=== PATIENT | male | born 1985 | race African-American/Black ===

== ENCOUNTER 2017-05-05 05:25 | Emergency (ER) | payer BC ==
[2017-05-05] MEDS ORDERED: SODIUM CHLORIDE 1,000 ML IV ONE (05:31)
[2017-05-05] MEDS ORDERED: ONDANSETRON 4 MG/2 ML VIAL IVPB ONE (05:31)
--- NOTE | 2017-05-05 05:31 | PDOC ---
History of Present Illness - General Chief Complaint: Vomiting/Diarrhea Stated Complaint: VOMITING/DIARRHEA POSSIBLE FOOD POISONING Time Seen by Provider: 05/05/17 05:31 History Source: Patient Exam Limitations: No Limitations - History of Present Illness Initial Comments: 05/05/17 05:38 This is a 32-year-old male who comes in complaining of nausea vomiting and diarrhea approximately 6 hours after eating a turkey sandwich yesterday. Patient said he has had multiple episodes of diarrhea associated with cramping of elbow pain and some vomiting. Patient also is complaining of some fevers and chills. Patient had 100.6 temperature here in the emergency room. Patient said he is otherwise healthy and denies any travel recently. PAST MEDICAL HISTORY: no significant history PAST SURGICAL HISTORY: no significant history FAMILY HISTORY: no pertinant history SOCIAL HISTORY: Pt lives with family and is employed. MEDICATIONS: reviewed ALLERGIES: As per nursing notes Review of Systems General: No fevers or chills, no weakness, no weight loss HEENT: No change in vision. No sore throat,. No ear pain CardioVascular: No chest pain or shortness of breath Respiratory:No cough, or wheezing. Gastrointestinal: + Nausea, vomiting, diarrhea. + Crampy abdominal pain Genitourinary: No dysuria, hematuria, or frequency Musculoskeletal: No joint or muscle pain or swelling Neurologic: No headache, vertigo, dizziness or loss of consciousness Psychiatric: nor depression Skin: No rashes or easy bruising Endocrine: no increased thirst or abnormal weight change Allergic: no skin or latex allergy All other systems reviewed and normal Exam: General: Well-nourished well-developed individual, no acute distress HEENT: Throat: Normal, tonsils normal, no erythema or exudate, mucous membranes dry Neck: Supple, no meningeal signs, no lymphadenopathy Eyes::Pupils equal reactive and round, extraocular motion intact Chest: Nontender to palpation Cardiac: S1-S2 normal, regular rate and rhythm, no murmurs rubs or gallops Respiratory: Lungs clear to auscultation bilateral Abdomen: Soft, nondistended, normal bowel sounds, nontender to palpation diffusely Extremities: Warm, dry, no cyanosis, clubbing, or edema Skin: No rashes Neuro: Alert and oriented x3, nonfocal exam, grossly intact, normal gait Psych: Normal mood and affect 05/05/17 07:00 Reevaluation patient feels much better however lab work still pending. Care of patient transferred to Dr. Luis at 7 AM Case discussed in detail with oncoming Emergency Physician including history, physical exam and ancillary studies. Oncoming Emergency Physician has assumed care for the patient and will complete the evaluation and treatment. Patient is aware of the plan. Pt is clinically unchanged and stable. Past History - Past Medical History Allergies/Adverse Reactions: Allergies Allergy/AdvReac Type Severity Reaction Status Date / Time No Known Allergies Allergy Verified 05/05/17 05:27 Home Medications: Ambulatory Orders NK [No Known Home Medication] 05/05/17 ED Treatment Course - LABORATORY CBC & Chemistry Diagram: 05/05/17 05:53 05/05/17 05:53 *DC/Admit/Observation/Transfer Diagnosis at time of Disposition: Gastroenteritis Food poisoning Qualifiers: Encounter type: initial encounter Injury intent: undetermined intent Qualified Code(s): T62.94XA - Toxic effect of unspecified noxious substance eaten as food , undetermined, initial encounter - Discharge Dispostion Disposition: HOME Condition at time of disposition: Stable - Patient Instructions Printed Discharge Instructions: DI for Viral Gastroenteritis -- Adult Additional Instructions: Fluids, rest, Tylenol If worsens in next 12-24 hr, return to ER
[2017-05-05 05:34] VITALS: BMI 36.2
[2017-05-05] MEDS ORDERED: ACETAMINOPHEN 1000 MG/100 ML VIAL (NON FORMULARY) IVPB ONE (05:35)
[2017-05-05] MEDS ORDERED: ONDANSETRON 4 MG/2 ML VIAL ONE (05:40)
[2017-05-05] MEDS ORDERED: ACETAMINOPHEN INJECTION 100 ML IVPB ONE (05:40)
[2017-05-05 06:17] LABS: BASOPHIL 0.2 % (0-2.0); EOSINOPHIL 0.1 % (0-4.5); MCH 29.6 pg (25.7-33.7); MCHC 32.9 g/dl (32.0-35.9); MEAN PLT VOLUME 10.2 fl (7.5-11.1); NEUTROPHILS 85.9 % (42.8-82.8); PLATELET COUNT 128 K/MM3 (134-434); WHITE BLOOD COUNT 11.6 K/mm3 (4.0-10.0)
[2017-05-05] MEDS ORDERED: SODIUM CHLORIDE 1,000 ML IV STA (07:11)
--- NOTE | 2017-05-05 07:16 | PDOC ---
History of Present Illness - General Chief Complaint: Vomiting/Diarrhea Stated Complaint: VOMITING/DIARRHEA POSSIBLE FOOD POISONING Time Seen by Provider: 05/05/17 05:31 History Source: Patient Exam Limitations: No Limitations - History of Present Illness Travel History: No Initial Comments: 05/05/17 07:12 32 y/o male presents to ER with N/V/D since last evening. Patient seen by Dr. Kelly and started with fluids, Zofran and Tylenol. Labs are pending this morning. Patient states that he at a [employer] sandwich last night and about 6 hrs after developed N/V/D. Started to have fever and chills. He is now feeling better. No abdominal or back pain. No recnet sick exposure or traveling. No SOB or chest pain. Quality: reports: mild Pain Radiation: reports: no radiation Activities at Onset: reports: eating Past History - Past Medical History Allergies/Adverse Reactions: Allergies Allergy/AdvReac Type Severity Reaction Status Date / Time No Known Allergies Allergy Verified 05/05/17 05:27 Home Medications: Ambulatory Orders NK [No Known Home Medication] 05/05/17 Other medical history: DENIES - Psycho/Social/Smoking Cessation Hx Anxiety: No Suicidal Ideation: No Smoking History: Never smoked Have you smoked in the past 12 months: No Information on smoking cessation initiated: No Hx Alcohol Use: No Drug/Substance Use Hx: No Substance Use Type: None Review of Systems - Review of Systems Able to Perform ROS?: Yes Is the patient limited [place] proficient: No Constitutional: Yes: Chills, Fever Respiratory: No: Cough, Shortness of Breath Cardiac (ROS): No: Chest Pain, Irregular Heart Rate ABD/GI: Yes: Diarrhea, Nausea, Vomiting : No: Burning, Dysuria All Other Systems: Reviewed and Negative *Physical Exam - Vital Signs Last Vital Signs Temp Pulse Resp BP Pulse Ox 100.4 F H 111 H 20 119/91 97 05/05/17 05:27 05/05/17 05:27 05/05/17 05:27 05/05/17 05:27 05/05/17 05:27 - Physical Exam General Appearance: Yes: Nourished, Appropriately Dressed. No: Apparent Distress HEENT: positive: EOMI, YENNI, Normal ENT Inspection, Normal Voice Neck: positive: Trachea midline, Normal Thyroid, Supple. negative: Tender, Rigid, Carotid bruit Respiratory/Chest: positive: Lungs Clear, Normal Breath Sounds. negative: Chest Tender Cardiovascular: positive: Regular Rhythm, Regular Rate, S1, S2. negative: Edema , JVD, Murmur Vascular Pulses: Femoral (R): 4+, Femoral (L): 4+, Carotid (R): 4+, Carotid (L) : 4+, Dorsalis-Pedis (R): 4+, Doralis-Pedis (L): 4+ Gastrointestinal/Abdominal: positive: Normal Bowel Sounds, Flat, Soft, Other ( No RLQ or LLQ tenderness, +BS, no RUQ or LUQ tenderness). negative: Tender, Organomegaly, Pulsatile Mass Lymphatic: negative: Adenopathy, Tenderness, Other Musculoskeletal: positive: Normal Inspection. 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 No abdominal pain or vomiting wbc slightly elevated and Cr/BUN slightly elevated Will discharge home Vitals signs repeated and noted. Temp 100.2. - Medications Given in the ED: ED Medications Discontinued Medications Generic Name Dose Route Start Last Admin Trade Name Freq PRN Reason Stop Dose Admin Acetaminophen 1,000 mg 05/05/17 05:35 05/05/17 05:49 Ofirmev Injection - IVPB 05/05/17 05:36 1,000 mg ONCE ONE Administration Sodium Chloride 1,000 mls @ 1,000 mls/hr 05/05/17 05:31 05/05/17 05:39 Normal Saline - IV 05/05/17 06:30 1,000 mls/hr .Q1H ONE Administration Ondansetron HCl 8 mg 05/05/17 05:31 07/04/17 05:45 Zofran Injection IVPB 05/05/17 05:32 8 mg ONCE ONE Administration Progress Note - Progress Note Progress Note: Patient feels much better after 2 L of fluids. Vitals slightly better, no abdominal pain. Agrees to discharge, and understands if worsens will return to ER *DC/Admit/Observation/Transfer Diagnosis at time of Disposition: Gastroenteritis Food poisoning Qualifiers: Encounter type: initial encounter Injury intent: undetermined intent Qualified Code(s): T62.94XA - Toxic effect of unspecified noxious substance eaten as food , undetermined, initial encounter - Discharge Dispostion Condition at time of disposition: Stable Admit: No - Patient Instructions Printed Discharge Instructions: DI for Viral Gastroenteritis -- Adult Additional Instructions: Fluids, rest, Tylenol If worsens in next 12-24 hr, return to ER
[2017-05-05 07:18] LABS: ALBUMIN 3.8 g/dl (3.4-5.0); ALK PHOS 85 U/L (45-117); ANION GAP 7 (8-16); BILIRUBIN,TOTAL 0.4 mg/dL (0.2-1.0); CALCIUM 8.5 mg/dL (8.5-10.1); CO2 27 mmol/L (21-32); CREATININE 1.5 mg/dL (0.7-1.3); GLUCOSE,RANDOM 138 mg/dL (74-106); SGOT/AST 35 U/L (15-37); SGPT/ALT 59 U/L (12-78); TOT PROT 6.7 g/dl (6.4-8.2)
[2017-05-05 07:38] VITALS: BP 113/59; PULSE 112; TEMP 100.2
== END 2017-05-05 07:58 | disposition home or self-care (01) ==
LOC: FER 05:25
PROC: 3E033NZ Introduction of Analgesics, Hypnotics, Sedatives into Peripheral Vein, Percutaneous Approach (ICD-10-PCS; principal; 2017-05-05)
PROC: 3E033GC Introduction of Other Therapeutic Substance into Peripheral Vein, Percutaneous Approach (ICD-10-PCS; 2017-05-05)
PROC: 3E0337Z Introduction of Electrolytic and Water Balance Substance into Peripheral Vein, Percutaneous Approach (ICD-10-PCS; 2017-05-05)
DX: T62.94XA Toxic effect of unspecified noxious substance eaten as food, undetermined, initial encounter (principal); K52.9 Noninfective gastroenteritis and colitis, unspecified; X58.XXXA Exposure to other specified factors, initial encounter; Y93.89 Activity, other specified; Y92.9 Unspecified place or not applicable
CPT/HCPCS: 36415; 80053; 85025; 99281-25

== ENCOUNTER 2018-07-12 14:31 | Observation (INO) | payer OTHER, BC ==
[2018-07-12 14:47] VITALS: BMI 29.9
[2018-07-12] MEDS ORDERED: CYCLOBENZAPRINE HCL 10 MG TABLET (FP) PO ONE (15:52)
[2018-07-12] MEDS ORDERED: KETOROLAC TROMETHAMINE 60 MG/2 ML VIAL IM ONE (15:52)
[2018-07-12] MEDS ORDERED: CYCLOBENZAPRINE HCL 10 MG TABLET (FP) ONE (15:52)
[2018-07-12] MEDS ORDERED: KETOROLAC TROMETHAMINE 60 MG/2 ML VIAL ONE (15:52)
--- NOTE | 2018-07-12 16:32 | PDOC ---
History of Present Illness - General Chief Complaint: Chronic pain Stated Complaint: BACK PAIN Time Seen by Provider: 07/12/18 15:25 History Source: Patient - History of Present Illness Occurred: reports: yesterday Pain Location: reports: back Past History - Past Medical History Allergies/Adverse Reactions: Allergies Allergy/AdvReac Type Severity Reaction Status Date / Time No Known Allergies Allergy Verified 07/12/18 14:43 Home Medications: Ambulatory Orders Cetirizine HCl [All Day Allergy] 10 mg PO DAILY 07/12/18 Montelukast Sodium [Singulair] 5 mg PO DAILY 07/12/18 COPD: No DVT: No Dementia: No - Immunization History Immunization Up to Date: Yes - Suicide/Smoking/Psychosocial Hx Smoking History: Never smoked Have you smoked in the past 12 months: No Hx Alcohol Use: No Drug/Substance Use Hx: No Substance Use Type: None Review of Systems - Review of Systems Constitutional: No: Chills, Fever ABD/GI: No: Nausea, Vomiting, Abdominal cramping : No: Dysuria, Flank Pain, Hematuria Musculoskeletal: Yes: Back Pain *Physical Exam - Vital Signs Last Vital Signs Temp Pulse Resp BP Pulse Ox 98.5 F 80 16 141/81 96 07/12/18 14:43 07/12/18 14:43 07/12/18 14:43 07/12/18 14:43 07/12/18 14:43 - Physical Exam General Appearance: Yes: Appropriately Dressed, Moderate Distress HEENT: positive: Normal Voice Neck: positive: Supple Respiratory/Chest: negative: Respiratory Distress Gastrointestinal/Abdominal: positive: Soft. negative: Tender Musculoskeletal: positive: Normal Inspection. negative: CVA Tenderness Integumentary: positive: Dry, Warm Neurologic: positive: Fully Oriented, Alert, Normal Mood/Affect ED Treatment Course - Medications Given in the ED: ED Medications Discontinued Medications Generic Name Dose Route Start Last Admin Trade Name Freq PRN Reason Stop Dose Admin Cyclobenzaprine HCl 10 mg 07/12/18 15:52 07/12/18 15:54 Flexeril - PO 07/12/18 15:53 10 mg ONCE ONE Administration Ketorolac Tromethamine 60 mg 07/12/18 15:52 07/12/18 15:54 Toradol Injection - IM 07/12/18 15:53 60 mg ONCE ONE Administration Medical Decision Making - Medical Decision Making 07/12/18 17:02 33 yo male, endorses history of chronic lower back pain s/p lower back injury several years ago, herniated disc on MRI, status post multiple sessions of physical therapy, usually takes Flexeril and Motrin for pain at home, 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 Taking motrin at pain w/ no relief. No lower extremity sensory changes, weakness , saddle anesthesia, bowel or bladder incontinence. No recent injuries. No dysuria, hematuria, nausea, vomiting, fever or chills. See axam Acute on chronic LBP Not relieved w/ home meds Herniated disc on remote MRI S/p PT No red flags on exam to warrant spinal imaging at this time -pain control, reassess 07/12/18 17:11 Pt continues to complain of severe pain despite attempt at pain control. Will give dose of IM morphine and reassess 07/12/18 18:56 Pain persists despite [address] of morphine. Will place IV line in order to continue to control pain. CT L/S spine in progress. May warrant admission for intractable back pain 07/12/18 19:08 Pt signed out to COLT Garcia *DC/Admit/Observation/Transfer Diagnosis at time of Disposition: Intractable back pain - Referrals - Patient Instructions - Post Discharge Activity
[2018-07-12] MEDS ORDERED: morphine CARPU-JECT 4 MG/1 ML DISP.SYRIN IM ONE (17:02)
[2018-07-12] MEDS ORDERED: morphine SULFATE 4 MG/ML VIAL ONE ×2 (17:12→19:53)
[2018-07-12] MEDS ORDERED: morphine CARPU-JECT 4 MG/1 ML DISP.SYRIN IVPUSH ONE (18:54)
[2018-07-12] MEDS ORDERED: diazePAM 5 MG TABLET PO ONE (19:43)
[2018-07-12] MEDS ORDERED: diazePAM 5 MG TABLET ONE (19:54)
[2018-07-12] MEDS ORDERED: DICLOFENAC SODIUM 25 MG TABLET.DR PO ONE (20:24)
--- NOTE | 2018-07-12 20:27 | PDOC ---
*Physical Exam - Vital Signs Last Vital Signs Temp Pulse Resp BP Pulse Ox 99.3 F 68 19 133/74 100 07/12/18 17:58 07/12/18 17:58 07/12/18 17:58 07/12/18 17:58 07/12/18 17:58 - Physical Exam General Appearance: Yes: Appropriately Dressed Respiratory/Chest: positive: Lungs Clear, Normal Breath Sounds Musculoskeletal: positive: Normal Inspection, Vertebral Tenderness (lumbar area pain), Other (no numbness or tingling to lower extremity). 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, Fully Oriented, Alert, Motor Strength 03/06 ED Treatment Course - LABORATORY CBC & Chemistry Diagram: 07/12/18 20:30 07/12/18 20:30 - Medications Given in the ED: ED Medications Discontinued Medications Generic Name Dose Route Start Last Admin Trade Name Freq PRN Reason Stop Dose Admin Cyclobenzaprine HCl 10 mg 07/12/18 15:52 07/12/18 15:54 Flexeril - PO 07/12/18 15:53 10 mg ONCE ONE Administration Diazepam 5 mg 07/12/18 19:43 07/12/18 19:45 Valium - PO 07/12/18 19:44 5 mg ONCE ONE Administration Ketorolac Tromethamine 60 mg 07/12/18 15:52 07/12/18 15:54 Toradol Injection - IM 07/12/18 15:53 60 mg ONCE ONE Administration Morphine Sulfate 4 mg 07/12/18 17:02 07/12/18 17:12 Morphine Injection - IM 07/12/18 17:03 4 mg ONCE ONE Administration Morphine Sulfate 4 mg 07/12/18 18:54 07/12/18 19:30 Morphine Injection - IVPUSH 07/12/18 18:55 4 mg ONCE ONE Administration Medical Decision Making - Medical Decision Making 07/12/18 22:43 patient able to stand without difficulty, pain is better controlled at this time. will d/c home with pain meds. patient advised to follow up with ortho/ pain management. no cauda equina syndrome in the ED strict precautions reviewed. will d/c 07/12/18 23:49 patient is now unable to stand and ambulate for discharge. will admit for intractable pain *DC/Admit/Observation/Transfer Diagnosis at time of Disposition: Lumbar and sacral spondyloarthritis, Intractable low back pain - Discharge Dispostion Decision to Admit order: Yes - Prescriptions Prescriptions: Cyclobenzaprine HCl [Flexeril -] 10 mg PO TID PRN #7 tablet PRN Reason: Muscle Spasms Ibuprofen 600 mg PO QID PRN #20 tablet PRN Reason: Lower Back Pain Oxycodone HCl/Acetaminophen [Percocet 5-325 mg Tablet] 1 tab PO Q6H PRN #7 tablet MDD 4 PRN Reason: Moderate Pain - Referrals Referrals: Cas Tomlinson MD [Staff Physician] - Call tomorrow Tim Salomon MD [Staff Physician] - Call tomorrow - Patient Instructions Printed Discharge Instructions: DI for Low Back Pain Additional Instructions: take ibuprofen every 6 hours as prescribed. take Flexeril and percocet (for severe pain) as prescribed. 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 Additional Instructions: * Please call your personal physician to report your Emergency Department visit and to report your progress, if any. * If there is no improvement in symptoms in 2 days call your physician. * Return to the Emergency Department for any worsening symptoms. return to the ER if symptoms worsen. - Post Discharge Activity Forms/Work/School Notes: Back to Work
[2018-07-12 21:04] LABS: BASO % 0.8 % (0-2.0); EOS % 3.8 % (0-4.5); HEMATOCRIT 43.8 % (35.4-49); HEMOGLOBIN 14.8 GM/dL (11.7-16.9); LYMPH % 36.9 % (8-40); MCH 30.4 pg (25.7-33.7); MCHC 33.9 g/dl (32.0-35.9); MEAN CELL VOLUME 89.7 fl (80-96); MEAN PLT VOLUME 10.6 fl (7.5-11.1); MONO % 10.7 % (3.8-10.2); NEUT % 47.8 % (42.8-82.8); PLATELET COUNT 158 K/MM3 (134-434); RBC 4.88 M/mm3 (4.00-5.60); RDW 14.3 % (11.9-15.9); WHITE BLOOD COUNT 5.1 K/mm3 (4.0-10.0)
[2018-07-12 21:28] LABS: ALBUMIN 3.5 g/dl (3.4-5.0); ALK PHOS 82 U/L (45-117); ANION GAP 9 MMOL/L (8-16); BILIRUBIN,TOTAL 0.4 mg/dL (0.2-1.0); BLOOD UREA NITROGEN 13 mg/dL (7-18); CALCIUM 8.4 mg/dL (8.5-10.1); CHLORIDE 105 mmol/L (98-107); CO2 27 mmol/L (21-32); GLUCOSE,RANDOM 119 mg/dL (74-106); SGPT/ALT 56 U/L (12-78); SODIUM 141 mmol/L (136-145); TOT PROT 6.8 g/dl (6.4-8.2)
[2018-07-12 21:33] LABS: POTASSIUM 4.9 mmol/L (3.5-5.1); SGOT/AST 39 U/L (15-37)
[2018-07-12 22:15] LABS: URINE APPEARANCE CLEAR; URINE BILIRUBIN NEGATIVE (<2.0 mg/dL); URINE COLOR YELLOW; URINE GLUCOSE (UA) NEGATIVE (NEGATIVE); URINE KETONE NEGATIVE (NEGATIVE); URINE LEUK ESTERASE NEGATIVE (NEGATIVE); URINE NITRITE NEGATIVE (NEGATIVE); URINE PROTEIN NEGATIVE (NEGATIVE); URINE UROBILINOGEN NEGATIVE mg/dL (0.2-1.0)
--- NOTE | 2018-07-13 00:16 | PN ---
Teaching Attending Note Name of Resident: Bam Bess ATTENDING PHYSICIAN STATEMENT I saw and evaluated the patient. I reviewed the resident's note and discussed the case with the resident. I agree with the resident's findings and plan as documented. SUBJECTIVE: Patient is a 33 year old man with history of chronic lower back pain after lower back injury in 2015 here with worsening non-radiating mid lower back pain since yesterday. He says he had a herniated disc on MRI, has had multiple sessions of physical therapy, usually takes Flexeril and Motrin for pain at home. He described pain as both sharp and pressure in nature, 10 out of 10. Taking motrin at pain with no relief. This is the first major flare up since 2015. No identifiable precipitating factor. No lower extremity sensory changes, weakness, saddle anesthesia, bowel or bladder incontinence. No recent injuries. No dysuria, hematuria, nausea, vomiting, fever or chills. OBJECTIVE: Alert Vital Signs Period Temp Pulse Resp BP Sys/Martin Pulse Ox Last 24 Hr 98.5 F-99.3 F 68-80 16-19 133-141/74-81 96-100 HEENT: No Jaundice, eye redness or discharge, PERRLA, EOMI. Normocephalic, atraumatic. External ears are normal and hearing is grossly intact. No nasal discharge. Neck: Supple, nontender. No palpable adenopathy or thyromegaly. No JVD Chest: Good effort. Clear to auscultation and percussion. Heart: Regular. No S3, rub or murmur Abdomen: Not distended, soft, nontender and no HSM. No rebound or guarding. Normoactive bowel sounds. Ext: Peripheral pulses intact. No leg edema. Tender in the lumbar area. Skin: Warm and dry. No petechiae, rash or ecchymosis. Neuro: Alert. Oriented x3. CN 2-12 grossly intact. Unable to stand. Pain with any leg movement. Sensation grossly intact in all four extremities and DTR are symmetric. Home Medications Medication Instructions Recorded Cetirizine HCl [All Day Allergy] 10 mg PO DAILY 07/12/18 Cyclobenzaprine HCl [Flexeril -] 10 mg PO TID PRN #7 tablet 07/12/18 Ibuprofen 600 mg PO QID PRN #20 tablet 07/12/18 Montelukast Sodium [Singulair] 5 mg PO DAILY 07/12/18 Oxycodone HCl/Acetaminophen 1 tab PO Q6H PRN #7 tablet MDD 4 07/12/18 [Percocet 5-325 mg Tablet] Abnormal Lab Results 07/12/18 07/12/18 20:30 20:30 Monocytes % 10.7 H Random Glucose 119 H Calcium 8.4 L AST 39 H ASSESSMENT AND PLAN: 1. Intractable low back pain - Will get an MRI and compare it with his original MRI (get report from PCP). Treat with IV morphine, lidocaine patch, warm compress, prednisone 40 mg po qd, and consult neurology. 2. Obesity - Will provide patient all the necessary assistance, counseling and positive reinforcement to facilitate weight loss. Consult extension service advisor. 3. DVT prophylaxis - Lovenox 40 mg SQ q 24 hours. 4. Advance directives - Full code
--- NOTE | 2018-07-13 01:07 | HP ---
CHIEF COMPLAINT: Low Back pain PCP: HISTORY OF PRESENT ILLNESS: The patient is a 33 yo m w/ PMH low back pain who comes into the ED c/o a 1 day history of worsening low back pain to the point where he has difficulty walking. 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 MRI at this time showed a herniated disc. He has tried several methods of pain control in the past including an epidural which has provided minimal relief. Today, the pain became so unbearable that he began to have difficulty ambulating which prompted him to seek medical attention. Patient denies saddle anaesthesia, loss of bowel or bladder control, numbness or tingling in extremities, lower extremity weakness. ER course was notable for: (1) CT showing L4-L5 diffuse DJD and foraminal narrowing. (2) s/p morphine, flexeril, ketorolac and percocet for pain control. (3) Recent Travel: none PAST MEDICAL HISTORY: see HPI PAST SURGICAL HISTORY: none Social History: Smoking: denies Alcohol: denies Drugs: denies Family History: non-contributory Allergies No Known Allergies Allergy (Verified 07/12/18 14:43) HOME MEDICATIONS: Home Medications Medication Instructions Recorded Cetirizine HCl [All Day Allergy] 10 mg PO DAILY 07/12/18 Cyclobenzaprine HCl [Flexeril -] 10 mg PO TID PRN #7 tablet 07/12/18 Ibuprofen 600 mg PO QID PRN #20 tablet 07/12/18 Montelukast Sodium [Singulair] 5 mg PO DAILY 07/12/18 Oxycodone HCl/Acetaminophen 1 tab PO Q6H PRN #7 tablet MDD 4 07/12/18 [Percocet 5-325 mg Tablet] REVIEW OF SYSTEMS CONSTITUTIONAL: Absent: fever, chills, diaphoresis, generalized weakness, malaise, loss of appetite, weight change HEENT: Absent: rhinorrhea, nasal congestion, throat pain, throat swelling, difficulty swallowing, mouth swelling, ear pain, eye pain, visual changes CARDIOVASCULAR: Absent: chest pain, syncope, palpitations, irregular heart rate, lightheadedness , peripheral edema RESPIRATORY: Absent: cough, shortness of breath, dyspnea with exertion, orthopnea, wheezing, stridor, hemoptysis GASTROINTESTINAL: Absent: abdominal pain, abdominal distension, nausea, vomiting, diarrhea, constipation, melena, hematochezia GENITOURINARY: Absent: dysuria, frequency, urgency, hesitancy, hematuria, flank pain, genital pain MUSCULOSKELETAL: Absent: myalgia, arthralgia, joint swelling, neck pain SKIN: Absent: rash, itching, pallor HEMATOLOGIC/IMMUNOLOGIC: Absent: easy bleeding, easy bruising, lymphadenopathy, frequent infections ENDOCRINE: Absent: unexplained weight gain, unexplained weight loss, heat intolerance, cold intolerance NEUROLOGIC: Absent: headache, focal weakness or paresthesias, dizziness, unsteady gait, seizure, mental status changes, bladder or bowel incontinence PSYCHIATRIC: Absent: anxiety, depression, suicidal or homicidal ideation, hallucinations. PHYSICAL EXAMINATION Vital Signs - 24 hr 07/12/18 07/12/18 14:43 17:58 Temperature 98.5 F 99.3 F Pulse Rate 80 Pulse Rate [ 68 Left] Respiratory 16 19 Rate Blood Pressure 141/81 Blood Pressure 133/74 [Left Arm] O2 Sat by Pulse 96 100 Oximetry (%) GENERAL: Awake, alert, and fully oriented, in no acute distress. HEAD: Normal with no signs of trauma. EYES: Pupils equal, round and reactive to light, extraocular movements intact, sclera anicteric, conjunctiva clear. No lid lag. EARS, NOSE, THROAT: Ears normal, nares patent, oropharynx clear without exudates. Moist mucous membranes. NECK: Normal range of motion, supple without lymphadenopathy, JVD, or masses. LUNGS: Breath sounds equal, clear to auscultation bilaterally. No wheezes, and no crackles. No accessory muscle use. HEART: Regular rate and rhythm, normal S1 and S2 without murmur, rub or gallop. ABDOMEN: Soft, nontender, not distended, normoactive bowel sounds, no guarding, no rebound, no masses. No hepatomegaly or splenomegaly. MUSCULOSKELETAL: Normal range of motion at all joints. No bony deformities or tenderness. No CVA tenderness. Tenderness to palpation in the paraspinal region of the lumbar spine. LOWER EXTREMITIES: 2+ pulses, warm, well-perfused. No calf tenderness. No peripheral edema. NEUROLOGICAL: Cranial nerves II-X intact. Normal speech. Strength 5/5 in all 4 limbs. sensation intact over all dermatomes PSYCHIATRIC: Cooperative. Good eye contact. Appropriate mood and affect. SKIN: Warm, dry, normal turgor, no rashes or lesions noted, normal capillary refill. Laboratory Results - last 24 hr 07/12/18 07/12/18 07/12/18 20:30 20:30 21:00 WBC 5.1 RBC 4.88 Hgb 14.8 Hct 43.8 MCV 89.7 MCH 30.4 MCHC 33.9 RDW 14.3 Plt Count 158 D MPV 10.6 Absolute Neuts (auto) 2.4 Neutrophils % 47.8 D Lymphocytes % 36.9 D Monocytes % 10.7 H Eosinophils % 3.8 D Basophils % 0.8 D Nucleated RBC % 0 Sodium 141 Potassium 4.9 Chloride 105 Carbon Dioxide 27 Anion Gap 9 BUN 13 Creatinine 1.0 Creat Clearance w eGFR > 60 Random Glucose 119 H Calcium 8.4 L Total Bilirubin 0.4 AST 39 H ALT 56 Alkaline Phosphatase 82 Total Protein 6.8 Albumin 3.5 Urine Color Yellow Urine Appearance Clear Urine pH 5.0 Ur Specific [place] 1.026 Urine Protein Negative Urine Glucose (UA) Negative Urine Ketones Negative Urine Blood Negative Urine Nitrite Negative Urine Bilirubin Negative Urine Urobilinogen Negative Ur Leukocyte Esterase Negative ASSESSMENT/PLAN: The patient is a 33 yo m w/ PMH chronic low back pain who comes into the ED c/o worsening low back pain and inability to ambulate. #intractable low back pain 2/2 previously herniated disc -no ssx of cauda equina syndrome at this time. -s/p morphine, flexeril, percocet in ED -ct shows L4-L5 diffuse DJD and foraminal narrowing -Pain control with lidocaine patches, percocet, morphine -Prednisone 40mg daily to decrease inflammation -warm compresses PRN -neurology consult; Dr. Fishman -ordered MRI spine; it may be helpful to obtain previous MRI records from patient's PCP #FEN -no fluids indicated -lytes WNL -regular diet #Prophy -lovenox 40mg SQ daily #DIspo -admit for observation Visit type - Emergency Visit Emergency Visit: Yes Care time: The patient presented to the Emergency Department on the above date and was hospitalized for further evaluation of their emergent condition. - New Patient This patient is new to me today: Yes Date on this admission: 07/13/18 - Critical Care Critical Care patient: No Hospitalist Screening - Colonoscopy Questionnaire Colonoscopy Questionnaire: Colonoscopy Questionnaire - Patient: 50 - 75 years old and never had a screening colonoscopy: Unknown History of colon or rectal polyps, or CA: Unknown History of IBD, Crohn's disease or UC: Unknown History of abdominal radiation therapy as a child: Unknown - Relative: 1 with colon or rectal CA, or polyps at age 60 or younger: Unknown Colon or rectal CA diagnosed at age 45 or younger: Unknown Multiple relatives with colon or rectal CA: Unknown - Outcome: Screening Result: Negative Screen
[2018-07-13] MEDS ORDERED: morphine SULFATE 4 MG/ML VIAL IVPUSH PRN (01:24)
[2018-07-13] MEDS ORDERED: ACETAMINOPHEN 325 MG TABLET (FP) PO PRN (01:50)
[2018-07-13] MEDS ORDERED: oxyCODONE HCL 5 MG TABLET PO PRN (01:50)
[2018-07-13] MEDS: predniSONE 20 MG TABLET (UD) PO SCH ×2 (02:05→09:55)
[2018-07-13 08:44] VITALS: TEMP 98.1
[2018-07-13] MEDS ORDERED: PT OWN MED DRAWER 7, Y5N ONE (09:18)
[2018-07-13] MEDS ORDERED: LIDOCAINE 5% TOPICAL PATCH ONE (09:21)
[2018-07-13] MEDS ORDERED: MORPHINE SULFATE 2 MG/ML VIAL IVPUSH PRN (09:23)
--- NOTE | 2018-07-13 09:34 | CONSULT ---
Consult - text type - Consultation Consultation Note: Neurology CHIEF COMPLAINT: Low Back pain HISTORY OF PRESENT ILLNESS: The patient is a 33 yo m w/ PMH low back pain who comes into the ED c/o a 1 day history of worsening low back pain to the point where he has difficulty walking. 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 MRI at that time reportedly showed a herniated disc. He has tried several methods of pain control in the past including an epidural which has provided minimal relief. Presents with pain recurrance that he began to have difficulty ambulating which prompted him to seek medical attention. Patient denies saddle anaesthesia, loss of bowel or bladder control, numbness or tingling in extremities, lower extremity weakness. Is moving extremities in bed but not participating in full confrontation testing. CT reportedly showed L4-L5 diffuse DJD and foraminal narrowing. Was given pain medication in ER. Recent Travel: none PAST MEDICAL HISTORY: see HPI PAST SURGICAL HISTORY: none Social History: Smoking: denies Alcohol: denies Drugs: denies Family History: non-contributory Allergies No Known Allergies Allergy (Verified 07/12/18 14:43) HOME MEDICATIONS: Home Medications Medication Instructions Recorded Cetirizine HCl [All Day Allergy] 10 mg PO DAILY 07/12/18 Cyclobenzaprine HCl [Flexeril -] 10 mg PO TID PRN #7 tablet 07/12/18 Ibuprofen 600 mg PO QID PRN #20 tablet 07/12/18 Montelukast Sodium [Singulair] 5 mg PO DAILY 07/12/18 Oxycodone HCl/Acetaminophen 1 tab PO Q6H PRN #7 tablet MDD 4 07/12/18 [Percocet 5-325 mg Tablet] REVIEW OF SYSTEMS CONSTITUTIONAL: Absent: fever, chills, diaphoresis, generalized weakness, malaise, loss of appetite, weight change HEENT: Absent: rhinorrhea, nasal congestion, throat pain, throat swelling, difficulty swallowing, mouth swelling, ear pain, eye pain, visual changes CARDIOVASCULAR: Absent: chest pain, syncope, palpitations, irregular heart rate, lightheadedness , peripheral edema RESPIRATORY: Absent: cough, shortness of breath, dyspnea with exertion, orthopnea, wheezing, stridor, hemoptysis GASTROINTESTINAL: Absent: abdominal pain, abdominal distension, nausea, vomiting, diarrhea, constipation, melena, hematochezia GENITOURINARY: Absent: dysuria, frequency, urgency, hesitancy, hematuria, flank pain, genital pain MUSCULOSKELETAL: Absent: myalgia, arthralgia, joint swelling, neck pain SKIN: Absent: rash, itching, pallor HEMATOLOGIC/IMMUNOLOGIC: Absent: easy bleeding, easy bruising, lymphadenopathy, frequent infections ENDOCRINE: Absent: unexplained weight gain, unexplained weight loss, heat intolerance, cold intolerance NEUROLOGIC: Absent: headache, focal weakness or paresthesias, dizziness, unsteady gait, seizure, mental status changes, bladder or bowel incontinence PSYCHIATRIC: Absent: anxiety, depression, suicidal or homicidal ideation, hallucinations. PHYSICAL EXAMINATION Vital Signs Period Temp Pulse Resp BP Sys/Martin Pulse Ox Last 24 Hr 98.1 F-99.3 F 68-80 16-19 127-141/74-81 96-100 GENERAL: Awake, alert, and fully oriented, in no acute distress. HEAD: Normal with no signs of trauma. EYES: Pupils equal, round and reactive to light, extraocular movements intact, sclera anicteric, conjunctiva clear. No lid lag. EARS, NOSE, THROAT: Ears normal, nares patent, oropharynx clear without exudates. Moist mucous membranes. NECK: Normal range of motion, supple without lymphadenopathy, JVD, or masses. LUNGS: Breath sounds equal, clear to auscultation bilaterally. No wheezes, and no crackles. No accessory muscle use. HEART: Regular rate and rhythm, normal S1 and S2 without murmur, rub or gallop. ABDOMEN: Soft, nontender, not distended, normoactive bowel sounds, no guarding, no rebound, no masses. No hepatomegaly or splenomegaly. MUSCULOSKELETAL: Normal range of motion at all joints. No bony deformities or tenderness. No CVA tenderness. Tenderness to palpation in the paraspinal region of the lumbar spine. LOWER EXTREMITIES: 2+ pulses, warm, well-perfused. No calf tenderness. No peripheral edema. NEUROLOGICAL: Cranial nerves II-X intact. Normal speech. Moving extremities grossly b/l. sensation intact over all dermatomes, gait deferred PSYCHIATRIC: Cooperative. Good eye contact. Appropriate mood and affect. SKIN: Warm, dry, normal turgor, no rashes or lesions noted, normal capillary refill. Laboratory Results - last 24 hr 07/12/18 07/12/18 07/12/18 20:30 20:30 21:00 WBC 5.1 RBC 4.88 Hgb 14.8 Hct 43.8 MCV 89.7 MCH 30.4 MCHC 33.9 RDW 14.3 Plt Count 158 D MPV 10.6 Absolute Neuts (auto) 2.4 Neutrophils % 47.8 D Lymphocytes % 36.9 D Monocytes % 10.7 H Eosinophils % 3.8 D Basophils % 0.8 D Nucleated RBC % 0 Sodium 141 Potassium 4.9 Chloride 105 Carbon Dioxide 27 Anion Gap 9 BUN 13 Creatinine 1.0 Creat Clearance w eGFR > 60 Random Glucose 119 H Calcium 8.4 L Total Bilirubin 0.4 AST 39 H ALT 56 Alkaline Phosphatase 82 Total Protein 6.8 Albumin 3.5 Urine Color Yellow Urine Appearance Clear Urine pH 5.0 Ur Specific [place] 1.026 Urine Protein Negative Urine Glucose (UA) Negative Urine Ketones Negative Urine Blood Negative Urine Nitrite Negative Urine Bilirubin Negative Urine Urobilinogen Negative Ur Leukocyte Esterase Negative ASSESSMENT/PLAN: 33 yo m w/ PMH low back pain who comes into the ED c/o a 1 day history of worsening low back pain to the point where he has difficulty walking. The patient states that he has had low back pain since 2014, where he injured himself while lifting heavy boxes at his job ([employer]). MRI at that time reportedly showed a herniated disc. He has tried several methods of pain control in the past including an epidural which has provided minimal relief. Presents with pain recurrance that he began to have difficulty ambulating which prompted him to seek medical attention. Patient denies saddle anaesthesia, loss of bowel or bladder control, numbness or tingling in extremities, lower extremity weakness. Is moving extremities in bed but not participating in full confrontation testing. CT reportedly showed L4-L5 diffuse DJD and foraminal narrowing. Was given pain medication in ER. Discussed with PCP, MRI L spine ordered. Physical therapy as tolerated. Encouraged ambulation as tolerated. Consider pain mgmt referral/ consult if needed. DVT ppx.
[2018-07-13] MEDS ORDERED: ACETAMINOPHEN 325 MG TABLET (FP) ONE (09:49)
[2018-07-13] MEDS ORDERED: oxyCODONE HCL 5 MG TABLET ONE (09:50)
[2018-07-13] MEDS ORDERED: ENOXAPARIN NA (PORCINE) 40 MG/0.4 ML DISP.SYRIN SQ SCH (10:00)
[2018-07-13] MEDS ORDERED: LIDOCAINE 5% TOPICAL PATCH TP SCH (10:00)
[2018-07-13 12:27] VITALS: BP 146/89; PULSE 101
--- NOTE | 2018-07-13 14:12 | PN ---
Teaching Attending Note Name of Resident: Gurjit Miller ATTENDING PHYSICIAN STATEMENT I saw and evaluated the patient. I reviewed the resident's note and discussed the case with the resident. I agree with the resident's findings and plan as documented. SUBJECTIVE: cont to have lower back pain, with no radiation to LE, no weakness, numbness or tingling. No saddle anesthesia, no urinary or fecal incontinence. no fever or chills . no h/o IV drug use . in the past had radiation to RLE and numbness in R big toe, but this has resolved. OBJECTIVE: NAD Cv: RRR, no MRG Lungs: CTAB Abd: sfot, NT, Nd , NL BS Ext: no edema, no erythema. Neuro of LE: strength 5/5 in hip flexion , knee flexion, extension , ankle dorsiflexion and plantar flexion sensation to light touch Nl . reflexes 1+ knee jerk b/l. absent ankle jerk b/ l. + b/l straight leg raise ASSESSMENT AND PLAN: 33 y/o man with h/o chronic back pain , who presented with worsening lower back pain . 1- Lower back pain: with no red flags for infection or cord compression . - CT reviewed. MRI with L4-5 disk herniation with L5 compression . L3-4 disk bulge with L4 impingement. - cont with prednisone - add flexeril - cont oxy and dc morphine - cont lidocaine patch - Pt eval. - out pt f/u for steroid injection if needed. - probably No surgical intervention is indicated, but will confirm with Neuro 2- DVT PX dispo : dc depends on pain control
[2018-07-13] MEDS ORDERED: PANTOPRAZOLE 40 MG TABLET (FP) PO SCH (14:30)
[2018-07-13] MEDS ORDERED: CYCLOBENZAPRINE HCL 5 MG TABLET PO SCH (14:30)
[2018-07-13] MEDS ORDERED: CYCLOBENZAPRINE HCL 10 MG TABLET (FP) ONE (14:39)
[2018-07-13] MEDS ORDERED: CYCLOBENZAPRINE HCL 10 MG TABLET (FP) PO SCH (14:47)
--- NOTE | 2018-07-13 18:00 | DS ---
Physical Exam: SUBJECTIVE: Patient seen and examined at bedside. C/o pain in his back over the lumber spine and paraspinal region b/l. Otherwise no complaints. OBJECTIVE: Vital Signs Period Temp Pulse Resp BP Sys/Martin Pulse Ox Last 24 Hr 98.1 F-99.3 F 68-101 16-19 127-146/74-89 96-100 PHYSICAL EXAM GENERAL: The patient is awake, alert, and fully oriented, in no acute distress. HEAD: Normal with no signs of trauma. EYES: PERRL, extraocular movements intact, sclera anicteric, conjunctiva clear. ENT: Ears normal, nares patent, oropharynx clear without exudates, moist mucous membranes. NECK: Trachea midline, full range of motion, supple. LUNGS: Breath sounds equal, clear to auscultation bilaterally, no wheezes, no crackles, no accessory muscle use. HEART: Regular rate and rhythm, S1, S2 without murmur, rub or gallop. ABDOMEN: Soft, nontender, nondistended, normoactive bowel sounds, no guarding, no rebound, no hepatosplenomegaly, no masses. EXTREMITIES: 2+ pulses, warm, well-perfused, no edema. NEUROLOGICAL: Cranial nerves II through XII grossly intact. Normal speech, gait not observed. PSYCH: Normal mood, normal affect. SKIN: Warm, dry, normal turgor, no rashes or lesions noted. LABS Laboratory Results - last 24 hr 07/12/18 07/12/18 07/12/18 20:30 20:30 21:00 WBC 5.1 RBC 4.88 Hgb 14.8 Hct 43.8 MCV 89.7 MCH 30.4 MCHC 33.9 RDW 14.3 Plt Count 158 D MPV 10.6 Absolute Neuts (auto) 2.4 Neutrophils % 47.8 D Lymphocytes % 36.9 D Monocytes % 10.7 H Eosinophils % 3.8 D Basophils % 0.8 D Nucleated RBC % 0 Sodium 141 Potassium 4.9 Chloride 105 Carbon Dioxide 27 Anion Gap 9 BUN 13 Creatinine 1.0 Creat Clearance w eGFR > 60 Random Glucose 119 H Calcium 8.4 L Total Bilirubin 0.4 AST 39 H ALT 56 Alkaline Phosphatase 82 Total Protein 6.8 Albumin 3.5 Urine Color Yellow Urine Appearance Clear Urine pH 5.0 Ur Specific [place] 1.026 Urine Protein Negative Urine Glucose (UA) Negative Urine Ketones Negative Urine Blood Negative Urine Nitrite Negative Urine Bilirubin Negative Urine Urobilinogen Negative Ur Leukocyte Esterase Negative IMAGING CT L-spine 07/12/18: "No definite disc herniation is identified. Mild L4-L5 central canal stenosis secondary to diffuse degenerative disc bulging. Minimal L4-L5 degenerative disc space narrowing with associated minimal spondylosis. If there is ongoing symptomatology MRI evaluation is suggested, nonemergent unless otherwise clinically indicated." MRI L-spine 07/13/18: "L3-L4 mild left paracentral disc bulge probably slightly impinging the exiting left L4 nerve root. L4-L5 mild to moderate disc herniation slightly deforming the thecal sac and impinging both exiting L5 nerve roots, right more than left" HOSPITAL COURSE: Date of Admission:07/13/18 The patient is a 33 yo M w/ PMHx chronic low back pain beginning in 2014 with a work accident, disc herniations on MRI, multiple attempted treatments including epidural steroids without relief. Now presents to the ED with unprovoked exacerbation of acute on chronic pain. Imaging as per above. Note that patient had spinal MRI in December at outside facility, findings here are stable and consistent with most recent prior. Neurology consulted, no need for acute intervention. Patient treated symptomatically with oxycodone, flexeril, lidocaine patch, and prednisone. Discharged on same as outpatient regimen with referrals for f/u with neurology, neurosurgery, pain management, and physical therapy. Importance of physical therapy as primary modality for improvement was emphasized. Date of Discharge: 07/13/18 Minutes to complete discharge: 40 Discharge Summary Reason For Visit: INTRACTABLE LOW BACK PAIN Current Active Problems Intractable low back pain (Acute) Lumbar and sacral spondyloarthritis (Chronic) Condition: Stable - Instructions Diet, Activity, Other Instructions: You were hospitalized due to an exacerbation of your chronic lower back pain. You were treated with pain medication and muscle relaxants. The mainstay of your recovery will be physical therapy. Please call to arrange an appointment as soon as possible. Referrals You have been given the following referrals for 2 weeks following discharge: Neuro surgery ---dr. Lindsay Pain Management --- Dr. Tomlinson Neurology -- Dr. Roberson Please keep your appointments with these providers. Medications/medical recommendations You are being prescribed the following medications for pain relief following discharge: Lidocaine patch Prednisone Flexeril Percocet you can take tylenol, but do not exceed 4 grams a day. percocet has 325 mg of tylenol in it Please refrain from using heavy machinery or climbing ladders, or driving after use of Flexeril and Percocet. Instructions for use of these medications is provided with the prescriptions. Please take them exactly as prescribed. You are also being prescribed a walker to use for assistance as needed. It is essential that you follow up with physical therapy and remain physically active, out of bed, and walking as much as you can tolerate. If you experience any new weakness, radiation of your pain, changes in sensation such as numbness or tingling in your legs, loss of bowel or urinary continence, or any other new symptoms, please return the ED immediately. Referrals: Jose Lindsay MD [Staff Physician] - 2 Weeks Cesar Roberson MD [Staff Physician] - 2 Weeks Cas Tomlinson MD [Staff Physician] - 2 Weeks Disposition: HOME - Home Medications Comprehensive Discharge Medication List: Ambulatory Orders Cetirizine HCl [All Day Allergy] 10 mg PO DAILY 07/12/18 Montelukast Sodium [Singulair] 5 mg PO DAILY 07/12/18 Cyclobenzaprine HCl [Flexeril -] 10 mg PO HS #7 tablet 07/13/18 Lidocaine 5% Patch [Lidoderm -] 1 patch TP DAILY #7 patch 07/13/18 Lidocaine Patch Removal [Lidoderm Patch Removal] 1 each DAILY@2200 #7 each Miscellaneous Medical Supply [Outpatient Order] 1 each ASDIR #1 misc Oxycodone HCl/Acetaminophen [Percocet 5-325 mg Tablet] 1 tab PO Q8H PRN #9 tablet MDD 3 tab 07/13/18 Prednisone See Taper PO DAILY #6 tablet 07/13/18 Walker [Ultra-Light Rollator] 1 each DAILY #1 each 07/13/18 This patient is new to me today: Yes Date on this admission: 07/13/18 Emergency Visit: Yes ED Registration Date: 07/13/18 Care time: The patient presented to the Emergency Department on the above date and was hospitalized for further evaluation of their emergent condition. Critical Care patient: No - Discharge Referral Referred to [facility] No
[2018-07-13] MEDS ORDERED: LIDOCAINE PATCH REMOVAL MC SCH (22:00)
== END 2018-07-13 15:41 | disposition home or self-care (01) ==
LOC: JER 14:31 → JERBED 07-13 06:54
PROVIDERS: ADMIT Internal Medicine; ATTEND Internal Medicine
PROC: 3E0333Z Introduction of Anti-inflammatory into Peripheral Vein, Percutaneous Approach (ICD-10-PCS; principal; 2018-07-13)
PROC: 3E033NZ Introduction of Analgesics, Hypnotics, Sedatives into Peripheral Vein, Percutaneous Approach (ICD-10-PCS; 2018-07-13)
PROC: 3E013GC Introduction of Other Therapeutic Substance into Subcutaneous Tissue, Percutaneous Approach (ICD-10-PCS; 2018-07-13)
DX: M47.817 Spondylosis without myelopathy or radiculopathy, lumbosacral region (principal); M54.5 Low back pain; G89.29 Other chronic pain; E66.9 Obesity, unspecified; Z68.30 Body mass index [BMI] 30.0-30.9, adult
CPT/HCPCS: 36415; 72131-TC; 72148-TC; 80053; 81003; 85025; 97116-GP; 97161-GP; 99285-25; G0378

== ENCOUNTER 2023-01-21 13:00 | Emergency (ER) | payer BC, OTHER ==
[2023-01-21 13:10] VITALS: BP 127/68; PULSE 64; RESP 18; TEMP 98.6; BMI 29.4
[2023-01-21] MEDS ORDERED: KETOROLAC TROMETHAMINE 30 MG/1 ML VIAL IM ONE (13:38)
[2023-01-21] MEDS ORDERED: LIDOCAINE 5% TOPICAL PATCH TP ONE (13:39)
[2023-01-21] MEDS ORDERED: LIDOCAINE 5% TOPICAL PATCH ONE (13:41)
[2023-01-21] MEDS ORDERED: KETOROLAC TROMETHAMINE 30 MG/1 ML VIAL ONE (13:41)
[2023-01-21] MEDS ORDERED: LIDOCAINE PATCH REMOVAL MC SCH (22:00)
== END 2023-01-21 15:10 | disposition home or self-care (01) ==
LOC: FER 13:00
PROC: 3E0233Z Introduction of Anti-inflammatory into Muscle, Percutaneous Approach (ICD-10-PCS; principal; 2023-01-21)
DX: M25.512 Pain in left shoulder (principal)
CPT/HCPCS: 73030-TC-LT-FY; 99284-25